=== PATIENT | female | born 1965 ===

== ENCOUNTER 2019-11-28 13:44 | Emergency (ER) | payer OTHER ==
[2019-11-28 13:47] VITALS: BP 109/47
[2019-11-28] MEDS ORDERED: dexAMETHasone 20 MG/5 ML VIAL IM ONE (14:58)
--- NOTE | 2019-11-28 15:33 | Emergency Department Report ---
ED Back Pain/Injury HPI - General Chief Complaint: Extremity Injury, Lower Stated Complaint: LEFT HIP PAIN Time Seen by Provider: 11/28/19 14:27 Source: patient Limitations: No Limitations - History of Present Illness Initial Comments: This is a 54-year-old female with history of chronic back and leg pain who presents the ED complaining of lower back pain radiating to left hip that began last night. Patient states that in the past for the past few years she has had a history of chronic leg pain where she takes gabapentin. Patient states yesterday she began feeling constantly had intermittent sharp pain in her lower back radiating to her right left hip. Patient states that pain is worsened with sitting down. Patient states that every time she tries to sit down she feels a sharp pain. She denies any urinary symptoms, fever, chills, nausea vomiting or diarrhea. She denies any injuries, trauma or fall MD Complaint: back pain - Related Data Previous Rx's Medication Instructions Recorded Last Taken Type HYDROcodone/APAP 5-325 [[place] 1 each PO Q6HR PRN #12 tablet 11/28/19 Unknown Rx 5/325] tiZANidine [Zanaflex 4mg TAB] 4 mg PO BID #30 tablet 11/28/19 Unknown Rx Allergies Allergy/AdvReac Type Severity Reaction Status Date / Time No Known Allergies Allergy Unverified 11/28/19 13:44 ED Review of Systems ROS: Stated complaint: LEFT HIP PAIN Other details as noted in HPI Comment: All other systems reviewed and negative ED Past Medical Hx - Past Medical History MIGRAINES H/A AND CHRONIC PAIN ED Back Pain Physical Exam - Exam General: Vital signs noted. No distress. Alert and acting appropriately. Back/Abdomen: No Abdominal Tenderness, No Perithoracic Tenderness, No Perilumbar Tenderness, No Sacroiliac Tenderness, No Flank Tenderness, No Straight Leg Raise Pain Neuro: Yes Normal Sensation, Yes Normal DTR's, Yes Normal Gait, No Motor Weakness ED Course Vital Signs 11/28/19 13:47 Temperature 98.7 F Pulse Rate 73 Respiratory 20 Rate Blood Pressure 109/47 O2 Sat by Pulse 95 Oximetry ED Medical Decision Making - Medical Decision Making This is a 54-year-old female who presents with acute on chronic lumbar radiculopathy. Patient received a Decadron shot in the ED. Discussed with patient to follow-up with neurologist as necessary. [employer] aware shows no record of narcotics. Patient understands instructions and states she will follow-up. Patient has no neurological deficit. Vital signs are normal and she understands to follow-up with a neurologist as well as a primary care physician. I discussed with the patient if any worsening or new symptoms to return to ED immediately. Critical care attestation.: If time is entered above; I have spent that time in minutes in the direct care of this critically ill patient, excluding procedure time. ED Disposition Clinical Impression: Lumbar pain with radiation down left leg, Lumbar radiculopathy, acute Disposition: [id number] TO HOME OR SELFCARE Is pt being admited?: No Does the pt Need Aspirin: No Condition: Stable Instructions: Trigger Point Pain (ED), Lumbar Radiculopathy (ED), Chronic Back Pain (ED) Additional Instructions: Make sure to follow up with the primary care physician as discussed. If you have any worsening symptoms or develop new symptoms please return to ED immediately. Prescriptions: HYDROcodone/APAP 5-325 [[place] 5/325] 1 each PO Q6HR PRN #12 tablet PRN Reason: Pain tiZANidine [Zanaflex 4mg TAB] 4 mg PO BID #30 tablet Referrals: [facility] MD KATE [Primary Care Provider] - 3-5 Days DEBRA CONWAY MD [Staff Physician] - 3-5 Days [facility] [Provider Group] - 3-5 Days Forms: Work/School Release Form(ED) Time of Disposition: 15:56
== END 2019-11-28 16:11 | disposition home or self-care (01) ==
LOC: ED 13:44
DX: M54.16 Radiculopathy, lumbar region (principal); G43.909 Migraine, unspecified, not intractable, without status migrainosus; G89.29 Other chronic pain
CPT/HCPCS: 96372; 99282; J1100